=== PATIENT | female | born 1980 | race African-American/Black ===

== ENCOUNTER 2019-07-11 20:58 | Emergency (ER) | payer MEDICAID ==
[~2019-07-11] VITALS: Ht 167.6 cm; Wt 45.0 kg
[2019-07-11] MEDS ORDERED: IBUPROFEN 800MG TABLET PO ONE (21:45)
[2019-07-12 06:30] VITALS: BP 123/61
== END 2019-07-12 06:30 | disposition home or self-care (01) ==
LOC: ER 22:41
DX: M79.672 Pain in left foot (principal); M79.671 Pain in right foot; F32.9 Major depressive disorder, single episode, unspecified; F20.9 Schizophrenia, unspecified
CPT/HCPCS: 99283